=== PATIENT | female | born 1940 | race Caucasian/White ===

== ENCOUNTER → 2016-09-04 | Outpatient (CLI) | payer OTHER ==
[~2016-09-04] MED LIST: ASPI-589; CALC-20 PO; CHOL100010 PO; CLBCRM30 EXT; CLBPO15 TOP; CLOP1TAB15 PO; IBAN150T PO; LISI-729 PO; LORA-741 PO; LPT/40 PO; METO25TA3 PO; NRN100 PO; NTRGSL/4 UT; OMEG10007 PO; OXYB10TA PO; PANT40TA PO; SUCR5SUS PO
[2016-09-04 10:09] LABS: BASO % 1.3 %; BASO ABS # 0.08 K/uL (0-0.2); COMPLETE YES; EOS % 7.2 %; HEMATOCRIT 39.2 % (37-47); IG% 0.2 %; LYMPH % 40.5 %; LYMPH ABS # 2.46 K/uL (1.2-3.4); MEAN CELL VOLUME 85.8 fL (80-100); MEAN CORPUSCULAR HEMOGLOBIN 28.7 pg (25-34); MEAN CORPUSCULAR HGB CONC 33.4 g/dl (32-36); MEAN PLATELET VOLUME 8.8 fL (7.4-10.4); MONO % 6.3 %; NEUT % 44.5 %; PLATELET COUNT 186 K/uL (130-400); RED BLOOD COUNT 4.57 M/uL (4.2-5.4); WHITE BLOOD COUNT 6.08 K/uL (4.8-10.8)
[2016-09-04 10:54] LABS: ALKALINE PHOSPHATASE 73 U/L (45-117); ALT/SGPT 26 U/L (12-78); AST/SGOT 13 U/L (15-37); BLOOD UREA NITROGEN 16 mg/dl (7-18); BUN/CREATININE RATIO 17.1 (10-20); CALCIUM 9.4 mg/dl (8.5-10.1); CARBON DIOXIDE 26 mmol/L (21-32); CHLORIDE 107 mmol/L (98-107); CREATININE 0.91 mg/dl (0.60-1.20); GLUCOSE 98 mg/dl (70-99); POTASSIUM 4.3 mmol/L (3.5-5.1); SODIUM 143 mmol/L (136-145)
[2016-09-04 10:55] LABS: ALB/GLOB RATIO 1.2 (0.9-2); CHOLESTEROL 163 mg/dl (0-200); HDL CHOLESTEROL 54 mg/dl; LDL CHOLESTEROL CALCULATED 90 mg/dl; TRIGLYCERIDES 96 mg/dl (0-150); VERY LOW DENSITY LIPOPROT CALC 19 mg/dl
== END ==
LOC: C.LAB1850 09:17
PROVIDERS: ATTEND Internal Medicine
DX: R13.10 Dysphagia, unspecified (principal); E78.5 Hyperlipidemia, unspecified

== ENCOUNTER → 2016-10-16 | Outpatient (CLI) | payer OTHER ==
[~2016-10-16] MED LIST changes: -CALC-20 PO; -CLBCRM30 EXT; -OMEG10007 PO
--- NOTE | 2016-10-16 11:11 | DIAGNOSTIC IMAGING REPORT ---
CHEST CT WITHOUT CONTRAST CT DOSE: 221.02 mGy.cm HISTORY: Pulmonary nodule R91.1 Pulmonary nodulect chest no contrast in [id number] TECHNIQUE: Multiaxial CT images of the chest were performed without contrast. COMPARISON: 01/19/2016 FINDINGS: Stable apical pleural and parenchymal scarring. Calcified granuloma superior segment left lower lobe unchanged. 3.5 mm nodular density right lower lobe unchanged. No new or interval findings. No significant hilar or mediastinal adenopathy. Exophytic left renal cyst unchanged. IMPRESSION: 1. No change compared to the prior study. 2. Stable apical pleural/parenchymal scarring . 3. Stable small nodular density right base. 4. No evidence for new interval or progressive lesion Please refer to below summary of Fleischner criteria recommendations for follow-up of incidental CT nodules (Reginaldo Monzon, Guidelines for management of small pulmonary nodules detected on CT scans: A statement from the Fleischner Society, Radiology 237: [phone].) SOLID NODULES Solitary nodule size: <6 mm * low risk patients: no follow-up needed * high risk patients: optional CT at 12 months Solitary nodule size: 6-8 mm * low risk patients: follow-up at 6-12 months, then consider further follow-up at 18-24 months * high risk patients: initial follow-up CT at 6-12 months and then at 18-24 months if no change Solitary nodule size: >8 mm * either low or high risk patients - consider follow-up CT at 3 months, and/or CT-PET, and/or biopsy Multiple nodules size: <6 mm * low risk patients: no routine follow-up * high risk patients: optional CT at 12 months Multiple nodules size: 6-8 mm * low risk patients: follow-up at 3-6 months, then consider further follow-up at 18-24 months * high risk patients: follow-up at 3-6 months, then at 18-24 months if no change Multiple nodules size: >8 mm * low risk patients: follow-up at 3-6 months, then consider further follow-up at 18-24 months * high risk patients: follow-up at 3-6 months, then at 18-24 months if no change Note: newly detected indeterminate nodule in persons 35 years of age or older. * Low risk patients: minimal or absent history of smoking and/or other known risk factors * high risk patients: history of smoking or of other known risk factors (e.g. first degree relative with lung cancer, or exposure to asbestos, radon, uranium) * if a nodule up to 8 mm is partly solid or is ground glass further follow-up is required after 24 months to exclude possible slow growing adenocarcinoma (MEGGAN) SUBSOIL NODULES Solitary pure ground-glass nodule * nodule size <6 mm - no CT follow-up required * nodule size >=6 mm - follow-up CT at 6-12 months, then every 2 years until 5 years Solitary part-solid nodule * nodule size <6 mm - no CT follow-up required * nodule size >=6 mm - follow-up CT at 3-6 months. If unchanged, and solid component remains <6 mm, then annual follow-up for 5 years Multiple subsolid nodules * nodule size <6 mm - follow-up CT at 3-6 months, consider further follow-up at 2 and 4 years if stable * nodule size >=6 mm - follow-up CT at 3-6 months, subsequent management based on the most suspicious nodule(s) Electronically signed by: Humberto Muse M.D. 10/16/2016 11:10 AM Dictated Date/Time: 10/16/2016 11:04 AM
== END | disposition home or self-care (01) ==
LOC: C.CTS 10:45
PROVIDERS: ATTEND Internal Medicine Pulmonary Disease
DX: R91.1 Solitary pulmonary nodule (principal)

== ENCOUNTER → 2016-11-30 | Outpatient (CLI) | payer OTHER ==
--- NOTE | 2016-11-30 13:07 | MAMMOGRAPHY REPORT ---
BILATERAL DIGITAL DIAGNOSTIC MAMMOGRAM TOMOSYNTHESIS WITH CAD AND TARGETED LEFT ULTRASOUND: 7 CLINICAL HISTORY: Personal history of breast cancer. Asymptomatic. TECHNIQUE: Breast tomosynthesis in addition to standard 2D mammography was performed. Current study was also evaluated with a Computer Aided Detection (CAD) system. Bilateral CC and MLO 2-D and genaro synthesis images and spot magnification right cc and ML views were obtained. COMPARISON: Comparison is made to exams dated: 12/01/2015 mammogram, 05/24/2015 mammogram, 11/19/2014 m ammogram, 11/17/2013 mammogram, 11/14/2012 mammogram, and 10/19/2011 mammogram - [facility]. BREAST COMPOSITION: There are scattered areas of fibroglandular density in both breasts. FINDINGS: Again noted are post surgical changes in the left central breast from prior lumpectomy, i ncluding density, architectural distortion, surgical clips, and coarse dystrophic calcifications at the lumpectomy bed. A nodular 10 mm asymmetry is seen within the left breast superior to the lumpec tatiana bed on the MLO tomosynthesis images only, which may represent normal overlapping fibroglandular tissue although ultrasound was performed. This localizes to the lateral aspect of the breast on th e tomosynthesis localizer bar. Mammograms of the right breast demonstrate a small 6 mm cluster of heterogeneous calcifications with in the right upper inner quadrant, which appear increased compared to prior exams and are therefore indeterminant. The remainder of both breasts are stable compared to prior exams, without suspicious masses, calcifications, or areas of architectural distortion noted. Other scattered bilateral myrtle gn-appearing calcifications are not significantly changed. Targeted ultrasound was performed of the left superior breast including the left upper outer quadran t and 12:00 breast in the region of the mammographic asymmetry. Expected hypoechoic shadowing is se en at the lumpectomy bed in the left subareolar and periareolar breast, with no suspicious mass or o ther suspicious sonographic abnormalities evident. Given the lack of corresponding sonographic abno rmality, the asymmetry is felt to represent normal fibroglandular tissue. IMPRESSION: ACR BI-RADS CATEGORY 4: SUSPICIOUS, TARGETED ULTRASOUND ACR BI-RADS CATEGORY 4: SUSPICI OUS 1. Stable postsurgical changes in the left breast from prior lumpectomy, without mammographic evide nce of malignancy in the left breast. Recommend routine follow-up in one year. 2. Increasing 6 mm cluster of calcifications in the right upper inner quadrant. The calcifications are indeterminate and stereotactic biopsy is recommended for further evaluation (recommend CC from above approach). A phone call was made to the physician's office to confirm faxed results were received. The patient has been verbally notified of the results. The patient reports that she is on Plavix and aspirin a s she had a cardiac stent placed in June. I advised the patient that the procedure could still be performed on aspirin and Plavix although there is an increased risk of bleeding. Approximately 10% of breast cancers are not detected with mammography. A negative mammographic repor t should not delay biopsy if a clinically suggestive mass is present. Chanelle Schmidt M.D. ah/:11/30/2016 12:06:06 Ornamental Ironworker: Daniela FLORENTINO)(Adam), [facility] letter sent: Abnormal 4/5 BI-RADS Code: ACR BI-RADS Category 4: Suspicious Ultrasound BI-RADS: ACR BI-RADS Category 4: Suspic ious
== END | disposition home or self-care (01) ==
LOC: C.MAMM 10:26
PROVIDERS: ATTEND Surgery
DX: R92.1 Mammographic calcification found on diagnostic imaging of breast (principal); Z08 Encounter for follow-up examination after completed treatment for malignant neoplasm; Z85.3 Personal history of malignant neoplasm of breast; Z98.890 Other specified postprocedural states

== ENCOUNTER → 2017-03-06 | Outpatient (CLI) | payer OTHER ==
[~2017-03-06] MED LIST changes: -LORA-741 PO
--- NOTE | 2017-03-06 18:02 | DIAGNOSTIC IMAGING REPORT ---
LUMBAR SPINE MRI HISTORY: LUMBAR RADICULOPATHY TECHNIQUE: Multiplanar multisequence MRI of the lumbar spine was performed without the use of contrast. COMPARISON: None. FINDINGS: For the purpose of the report the L5-S1 disc space will be located on axial image 23 of 25. S1 is demonstrated to be a transitional vertebra with a hypoplastic S1-S2 disc space. There are few small Tarlov cysts at the S2 level. Alignment and curvature are intact. The conus terminates at the L2 level. Paraspinal soft tissues are unremarkable. Mild to moderate facet degenerative changes within the lower lumbar spine. A T1 and T2 hypointense lesion within the uterine fundus which measures 1.7 cm. This favors a calcified uterine fibroid L1-L2: Small central/right paracentral focal disc protrusion. No significant central canal or neural foraminal narrowing. L2-L3: Small broad-based posterior disc bulge without significant central canal or neural foraminal narrowing. L3-L4: Broad-based posterior disc bulge resulting in mild central canal narrowing. No significant neural foraminal narrowing. L4-L5: Broad-based posterior disc bulge with ligamentum and facet hypertrophy resulting in mild central canal narrowing. No significant neural foraminal narrowing. L5-S1: Small broad-based posterior disc bulge without significant central canal narrowing. There is mild bilateral neural foraminal narrowing due to the setting of a. IMPRESSION: 1. Multilevel lumbar spondylosis as described above most pronounced at the L3-L4 and L4-L5 levels where there is mild central canal narrowing. 2. No fracture or subluxation. 3. S1 is demonstrated to be a transitional vertebra. Electronically signed by: Ryan Metz M.D. 03/06/2017 6:00 PM Dictated Date/Time: 03/06/2017 5:54 PM
== END | disposition home or self-care (01) ==
LOC: C.MRIBC 16:08
PROVIDERS: ATTEND Anesthesiology
DX: M54.16 Radiculopathy, lumbar region (principal)

== ENCOUNTER → 2017-04-30 | Outpatient (CLI) | payer OTHER ==
[2017-04-30 13:20] LABS: ALT/SGPT 22 U/L (12-78); AST/SGOT 16 U/L (15-37); BLOOD UREA NITROGEN 14 mg/dl (7-18); BUN/CREATININE RATIO 17.7 (10-20); CALCIUM 8.8 mg/dl (8.5-10.1); CARBON DIOXIDE 24 mmol/L (21-32); CHLORIDE 110 mmol/L (98-107); CHOLESTEROL 129 mg/dl (0-200); CREATININE 0.81 mg/dl (0.60-1.20); GLUCOSE 91 mg/dl (70-99); SODIUM 143 mmol/L (136-145); TRIGLYCERIDES 75 mg/dl (0-150); VERY LOW DENSITY LIPOPROT CALC 15 mg/dl
[2017-04-30 13:30] LABS: CHOLESTEROL/HDL RATIO 2.4; HDL CHOLESTEROL 54 mg/dl; LDL CHOLESTEROL CALCULATED 60 mg/dl
[2017-04-30 13:32] LABS: ESTIMATED AVERAGE GLUCOSE 120 mg/dl; HA1C FLAG Normal (Normal)
== END | disposition home or self-care (01) ==
LOC: C.LAB1850 12:02
PROVIDERS: ATTEND Internal Medicine
DX: E78.5 Hyperlipidemia, unspecified (principal); R73.9 Hyperglycemia, unspecified; I10 Essential (primary) hypertension

== ENCOUNTER → 2017-09-06 | Outpatient (CLI) | payer OTHER ==
[~2017-09-06] MED LIST changes: -ASPI-589; +ASPI-589 PO; +ATOR80TA PO; +CHOL20009 PO; +ISOS-11 PO
[2017-09-06 12:35] LABS: ALT/SGPT 27 U/L (12-78); BLOOD UREA NITROGEN 16 mg/dl (7-18); CALCIUM 9.2 mg/dl (8.5-10.1); CARBON DIOXIDE 27 mmol/L (21-32); CHOLESTEROL 124 mg/dl (0-200); GLUCOSE 99 mg/dl (70-99); POTASSIUM 4.3 mmol/L (3.5-5.1); SODIUM 140 mmol/L (136-145)
[2017-09-06 12:36] LABS: AST/SGOT 19 U/L (15-37); LDL CHOLESTEROL CALCULATED 61 mg/dl
== END | disposition home or self-care (01) ==
LOC: C.LAB1850 10:46
PROVIDERS: ATTEND Internal Medicine
DX: E78.5 Hyperlipidemia, unspecified (principal); R73.9 Hyperglycemia, unspecified

== ENCOUNTER → 2017-09-14 | Day surgery (SDC) | payer OTHER ==
[2017-09-06 08:32] VITALS: Ht 149.9 cm; Wt 65.5 kg
[~2017-09-14] VITALS: Ht 149.9 cm; Wt 65.5 kg
[~2017-09-14] MED LIST changes: +BOTULINUM TOXIN TYPE A 100 UNIT VIAL IM ONE; -CHOL100010 PO; -IBAN150T PO; +LIDOCAINE HCL 2% 2 ML VIAL (20MG/ML) ONE; -LPT/40 PO; +PROPOFOL IV EMULSION 10 MG/ML 20 ML VIAL IV ONE
--- NOTE | 2017-09-14 14:27 | Endo History and Physical ---
History & Physical Date of Service: Sep 14, 2017. Chief Complaint: Dysphagia Referring Physician: Manuel Mcneil History of Present Illness For EGD with Botox Past Medical History Angioplasty/Stent, Osteoporosis, Arthritis, Reflux, High Cholesterol, Heart Disease, Hypertension, COPD, CVA/TIA Past Surgical History Hx Cardiac Surgery: Yes (HEART CATH X2, STENT X1) Hx Internal Defibrillator: No Hx Pacemaker: No Hx Abdominal Surgery: No Hx of Implantable Prosthesis: No Hx Post-Op Nausea and Vomiting: No Hx Cancer Surgery: Yes (LT BREAST LUMPECTOMY) Hx Thoracic Surgery: No Hx Orthopedic: Yes (LT RCR) Hx Urinary Tract Surgery: No Family History None Social History Smoking Status: Former Smoker Hx Substance Use: No Hx Alcohol Use: Yes (OCCASIONAL) Allergies Coded Allergies: Penicillins (Verified Allergy, Unknown, "since i was a child", 09/06/17) Current Medications Reported Home Medications Medications Dose Route/Sig Max Daily Dose Days Date Category Vitamin D (Cholecalciferol) 2,000 Unit Tab 1 Tab PO DAILY 09/06/17 Reported Isosorbide Mononitrate ER (Isosorbide Mononitrate) 30 Mg Tabcr 1 Tab PO QAM 09/06/17 Reported Lipitor (Atorvastatin) 80 Mg Tab 80 Mg PO QPM 09/06/17 Reported Gabapentin 100 Mg Cap 100 Mg PO DAILY-BID 03/02/17 Reported Prinivil (Lisinopril) 5 Mg Tab 5 Mg PO QPM 02/05/17 Reported Clobetasol Propionate 45 Appln/15 Gm Oint 1 Appln TOP PRN 02/05/17 Reported Nitrostat (Nitroglycerin) 0.4 Mg Tab 0.4 Mg UT UD PRN 09/07/16 Reported Aspirin Adult Low Dose (Aspirin) 81 Mg Tab 1 Tab PO QPM 09/07/16 Reported Toprol-Xl (Metoprolol Succinate) 25 Mg Tabcr 0.5 Tab PO QPM 09/07/16 Reported Protonix (Pantoprazole Sodium) 40 Mg Tab 40 Mg PO QPM 07/05/16 Reported Ditropan Xl (Oxybutynin Chloride) 10 Mg Tab 1 Tab PO QPM 07/05/16 Reported Carafate (Sucralfate) 1 Gm/10 Ml Susp 1 Gm PO UD PRN 05/04/15 Reported Plavix (Clopidogrel Bisulfate) 75 Mg Tab 75 Mg PO QPM 11/16/09 Reported Vital Signs Weight (Kilograms): 65.45 Height (Feet): 4 Height (Inches): 11 Date Time Temp Pulse Resp B/P (MAP) Pulse Ox O2 Delivery O2 Flow Rate FiO2 09/14/17 14:13 36.5 71 20 147/92 (110) 95 Room Air Physical Exam General Appearance: WD/WN Respiratory/Chest: Respiratory effort: no dyspnea Cardiovascular: Heart Auscultation: RRR Abdomen: Inspection & Palpation: soft Assessment and Plan Dysphagia for Botox injection
--- NOTE | 2017-09-14 15:09 | Discharge Instructions ---
Endoscopy Patient Instructions Date / Procedure(s) Performed Sep 14, 2017. EGD Allergy Information Coded Allergies: Penicillins (Verified Allergy, Unknown, "since i was a child", 09/06/17) Discharge Date / Findings Sep 14, 2017. Normal EGD, Botox injection Medication Instructions Restart Stopped Medication(s): resume meds Reported Home Medications Medications Dose Route/Sig Max Daily Dose Days Date Category Vitamin D (Cholecalciferol) 2,000 Unit Tab 1 Tab PO DAILY 09/06/17 Reported Isosorbide Mononitrate ER (Isosorbide Mononitrate) 30 Mg Tabcr 1 Tab PO QAM 09/06/17 Reported Lipitor (Atorvastatin) 80 Mg Tab 80 Mg PO QPM 09/06/17 Reported Gabapentin 100 Mg Cap 100 Mg PO DAILY-BID 03/02/17 Reported Prinivil (Lisinopril) 5 Mg Tab 5 Mg PO QPM 02/05/17 Reported Clobetasol Propionate 45 Appln/15 Gm Oint 1 Appln TOP PRN 02/05/17 Reported Nitrostat (Nitroglycerin) 0.4 Mg Tab 0.4 Mg UT UD PRN 09/07/16 Reported Aspirin Adult Low Dose (Aspirin) 81 Mg Tab 1 Tab PO QPM 09/07/16 Reported Toprol-Xl (Metoprolol Succinate) 25 Mg Tabcr 0.5 Tab PO QPM 09/07/16 Reported Protonix (Pantoprazole Sodium) 40 Mg Tab 40 Mg PO QPM 07/05/16 Reported Ditropan Xl (Oxybutynin Chloride) 10 Mg Tab 1 Tab PO QPM 07/05/16 Reported Carafate (Sucralfate) 1 Gm/10 Ml Susp 1 Gm PO UD PRN 05/04/15 Reported Plavix (Clopidogrel Bisulfate) 75 Mg Tab 75 Mg PO QPM 11/16/09 Reported Provider Instructions Activity Restrictions - No exercising or heavy lifting for 24 hours. - Do not drink alcohol the day of the procedure. - Do not drive a car or operate machinery until the day after the procedure. - Do not make any important decisions or sign important papers in 24 hours after the procedure. Following Day: - Return to full activity which may include returning to work/school. Diet Start your diet with liquids and light foods (jello, soup, juice, toast). Then eat your usual diet if not nauseated. Treatment For Common After Affects For mild abdominal pain, bloating, or excessive gas: - Rest - Eat lightly - Lie on right side Follow-Up Information Follow-up with Manuel Mcneil as scheduled Anesthesia Information What You Should Know You have had a procedure that required some medicine to reduce anxiety and discomfort. This treatment is called moderate sedation. After receiving the treatment, you may be sleepy, but you will be able to breathe on your own. The effects of the treatment may last for several hours. Follow these instructions along with Activity/Diet recommendations noted above: * Do NOT do anything where dizziness or clumsiness would be dangerous. * Rest quietly at home today, then you can be up and about tomorrow. * Have a responsible person stay with you the rest of today. * You may have had an I.V. today. If so, you may take the dressing off later today. Recommendations Call your doctor if: * Trouble breathing * Continuous vomiting for more than 24 hours * Temperature above 101 degrees * Severe abdominal pain or bloating * Pain not relieved by pain medicine ordered * There is increased drainage or redness from any incision * A large amount of rectal bleeding greater than 2-3 tablespoons. (If you had a polyp/s removed or have hemorrhoids, a small amount of blood - from the rectum is to be expected.) * You have any unanswered questions or concerns. IN THE EVENT OF A SERIOUS EMERGENCY, GO TO THE NEAREST EMERGENCY ROOM Your discharge instructions were prepared by provider Pablo Alexander. Patient Instructions Signature Page Aracelis Sparks Patient (or Guardian) Signature/Date: I have read and understand the instructions given to me by my caregivers. Caregiver/RN/Doctor Signature/Date: The above-named patient and/or guardian has received patient instructions on this date. + Original Patient Signature Page (only) stays with chart. Please make copy for patient.
--- NOTE | 2017-09-14 15:13 | GI REPORT ---
Procedure Date: 09/14/2017 2:56 PM Procedure: Upper GI endoscopy Indications: Dysphagia Medicines: Propofol total dose 140 mg IV, Lidocaine 80 mg IV Complications: No immediate complications. Estimated Blood Loss: Estimated blood loss: none. Procedure: Pre-Anesthesia Assessment: - Prior to the procedure, a History and Physical was performed, and patient medications, allergies and sensitivities were reviewed. The patient's tolerance of previous anesthesia was reviewed. - The risks and benefits of the procedure and the sedation options and risks were discussed with the patient. All questions were answered and informed consent was obtained. After obtaining informed consent, the endoscope was passed under direct vision. Throughout the procedure, the patient's blood pressure, pulse, and oxygen saturations were monitored continuously. The scope was introduced through the mouth, and advanced to the second part of duodenum. The upper GI endoscopy was accomplished without difficulty. The patient tolerated the procedure well. Findings: The Z-line was regular and was found 39 cm from the incisors. Area was successfully injected with botulinum toxin. The entire examined stomach was normal. The examined duodenum was normal. Impression: - Z-line regular, 39 cm from the incisors. Injected with botulinum toxin. - Normal stomach. - Normal examined duodenum. - No specimens collected. Recommendation: - Discharge patient to home (ambulatory). - Continue present medications. - Return to primary care physician PRN. Pablo Alexander M.D. Pablo Alexander MD 09/14/2017 3:12:57 PM This report has been signed electronically. Note Initiated On: 09/14/2017 2:56 PM I attest to the content of the Intraoperative Record and orders documented therein, exceptions below
--- NOTE | 2017-09-14 15:27 | Anesthesiology Progress Note ---
Anesthesia Post Op Note Date & Time Sep 14, 2017 at 15:27 Vital Signs Pain Intensity: 0 Vital Signs Past 12 Hours Date Time Temp Pulse Resp B/P (MAP) Pulse Ox O2 Delivery O2 Flow Rate FiO2 09/14/17 15:25 66 20 137/81 (99) 96 Room Air 09/14/17 15:10 71 20 131/84 (100) 96 Room Air 09/14/17 14:13 36.5 71 20 147/92 (110) 95 Room Air Notes Mental Status: alert / awake / arousable, participated in evaluation Pt Amnestic to Procedure: Yes Nausea / Vomiting: adequately controlled Pain: adequately controlled Airway Patency, RR, SpO2: stable & adequate BP & HR: stable & adequate Hydration State: stable & adequate Anesthetic Complications: no major complications apparent
[2017-09-14 15:40] VITALS: BP 148/73; PULSE 50; O2SAT 96
== END | disposition home or self-care (01) ==
LOC: C.GI 13:45
PROVIDERS: ATTEND Internal Medicine Gastroenterology
DX: R13.10 Dysphagia, unspecified (principal); J44.9 Chronic obstructive pulmonary disease, unspecified; K21.9 Gastro-esophageal reflux disease without esophagitis; M81.0 Age-related osteoporosis without current pathological fracture; M19.90 Unspecified osteoarthritis, unspecified site; E78.00 Pure hypercholesterolemia, unspecified; I11.9 Hypertensive heart disease without heart failure; Z86.73 Personal history of transient ischemic attack (TIA), and cerebral infarction without residual deficits; Z87.891 Personal history of nicotine dependence; Z88.0 Allergy status to penicillin; Z98.61 Coronary angioplasty status

== ENCOUNTER → 2018-02-15 | Outpatient (CLI) | payer OTHER ==
[~2018-02-15] MED LIST changes: -BOTULINUM TOXIN TYPE A 100 UNIT VIAL IM ONE; -LIDOCAINE HCL 2% 2 ML VIAL (20MG/ML) ONE; -PROPOFOL IV EMULSION 10 MG/ML 20 ML VIAL IV ONE
--- NOTE | 2018-02-15 14:37 | MAMMOGRAPHY REPORT ---
BILATERAL DIGITAL SCREENING MAMMOGRAM TOMOSYNTHESIS WITH CAD: 02/15/2018 CLINICAL HISTORY: Asymptomatic. Personal history of breast cancer. TECHNIQUE: The study was acquired using full field digital technology and interpreted from soft copy. Breast tomosynthesis in addition to standard 2D mammography was performed. Current study was also ev aluated with a Computer Aided Detection (CAD) system. COMPARISON: Comparison is made to exams dated: 11/30/2016 mammogram, 12/01/2015 mammogram, 05/24/2015 m ammogram, 11/19/2014 mammogram, 11/17/2013 mammogram, and 11/14/2012 mammogram - [facility]. BREAST COMPOSITION: There are scattered areas of fibroglandular density in both breasts. FINDINGS: No suspicious masses, calcifications, or areas of architectural distortion are noted in either breast . There has been no significant interval change compared to prior exams. There are stable postsurgic al changes in the left central breast from prior lumpectomy. A linear scar marker overlies the left breast. A new biopsy clip is seen within the right upper inner quadrant. Bilateral benign appearing calcifications are not significantly changed. IMPRESSION: ACR BI-RADS CATEGORY 2: BENIGN There is no mammographic evidence of malignancy. A 1 year screening mammogram is recommended.( [id number]) The patient will receive written notification of the results. Some breast cancers are not detected with mammography. A negative mammographic report should not lashaun y biopsy if a clinically suggestive mass is present. Chanelle Schmidt M.D. /:02/15/2018 13:45:47 Book Illustrator: Viola Martinez, [facility] letter sent: Normal 1/2 BI-RADS Code: ACR BI-RADS Category 2: Benign
== END | disposition home or self-care (01) ==
LOC: C.MAMM 11:39
PROVIDERS: ATTEND Internal Medicine
DX: Z12.31 Encounter for screening mammogram for malignant neoplasm of breast (principal)